=== PATIENT | male | born 1955 | race Caucasian/White ===

== ENCOUNTER 2024-07-13 07:57 | Day surgery (SDC) | payer MEDICARE ==
[2024-07-13] MEDS ORDERED: Sodium Chloride 0.9% 10 ML Syringe FLUSH PRN (08:04)
[2024-07-13] MEDS ORDERED: Propofol 200 MG/20 ML SDV ONE ×2 (08:04→09:31)
[2024-07-13] MEDS: Lactated Ringers 1,000 ML IV SCH (08:25)
[2024-07-13] MEDS ORDERED: Sodium Chloride 0.9% 10 ML Syringe FLUSH SCH (09:00)
[2024-07-13] MEDS ORDERED: fentaNYL 100 MCG/2 ML SDV ONE (09:21)
[2024-07-13] MEDS ORDERED: Bupivacaine 0.5% 30 ML SDV ONE (09:27)
[2024-07-13] MEDS ORDERED: Glycopyrrolate 0.2 MG/ML 2 ML SDV ONE (09:34)
[2024-07-13] MEDS ORDERED: Simethicone Drops 40 MG/0.6 ML 30 ML Bottle ONE (09:36)
== END 2024-07-13 10:35 | disposition home or self-care (01) ==
LOC: JD.SDS 07:57
PROVIDERS: ATTEND Surgery
DX: D12.2 Benign neoplasm of ascending colon (principal); D12.3 Benign neoplasm of transverse colon; K64.8 Other hemorrhoids; K63.5 Polyp of colon; K62.1 Rectal polyp; K29.51 Unspecified chronic gastritis with bleeding; K29.80 Duodenitis without bleeding; K64.4 Residual hemorrhoidal skin tags; Z86.0101 Personal history of adenomatous and serrated colon polyps; E78.2 Mixed hyperlipidemia; I11.0 Hypertensive heart disease with heart failure; I50.31 Acute diastolic (congestive) heart failure; Z79.899 Other long term (current) drug therapy
CPT/HCPCS: 43239; 45380; 46221; A9270; J0665; J2704; J3010; J3490; J7120; 00813